=== PATIENT | female | born 1980 ===

== ENCOUNTER 2025-07-09 11:45 | Inpatient (IN) | payer OTHER ==
[~2025-07-09] VITALS: Ht 165.1 cm; Wt 72.6 kg
[2025-07-09] MEDS ORDERED: GRALISE600 MG PO (13:12)
[2025-07-09 13:37] VITALS: BP 137/84
[2025-07-09 13:38] VITALS: BP 119/76
[2025-07-09 14:30] LABS: COVID-19 AG NEGATIVE (NEGATIVE)
[2025-07-09 15:12] LABS: RH POSITIVE
[2025-07-15] MEDS ORDERED: POVIDONE-IODINE 118 ML BOTT TOP ONE ×2 (15:05→15:19)
[2025-07-15] MEDS ORDERED: VISTASEAL DUAL APPICATOR 1 EACH APPL TOP ONE (15:19)
[2025-07-15] MEDS ORDERED: CEFAZOLIN SODIUM 1,000 MG VIAL IV ONE (16:45)
[2025-07-15] MEDS ORDERED: METRONIDAZOLE/SODIUM CHLORIDE 500 MG/100 ML PIGGYBACK IV ONE (16:45)
[2025-07-15] MEDS ORDERED: SUGAMMADEX SODIUM 200 MG/2 ML VIAL IV ONE (16:46)
[2025-07-15] MEDS ORDERED: OxyCODONE HCL 5 MG TABLET (ROXICODONE) PO PRN (17:30)
[2025-07-15] MEDS ORDERED: MORPHINE SULFATE 4 MG/ML CARTRIDGE IV PRN (17:30)
[2025-07-15] MEDS ORDERED: RINGERS SOLUTION,LACTATED 1,000 ML IV SCH (17:30)
[2025-07-15] MEDS ORDERED: ONDANSETRON HCL 2 MG/ML VIAL IV PRN (17:30)
[2025-07-15] MEDS ORDERED: ACETAMINOPHEN 500 MG GEL..CAP PO SCH (18:00)
[2025-07-15] MEDS ORDERED: KETOROLAC TROMETHAMINE 30 MG VIAL IM SCH (18:00)
[2025-07-15] MEDS ORDERED: MORPHINE SULFATE 4 MG/ML VIAL IV ONE ×2 (18:10→18:40)
[2025-07-15] MEDS ORDERED: KETOROLAC TROMETHAMINE 30 MG VIAL ONE (19:58)
[2025-07-15] MEDS ORDERED: FAMOTIDINE/PF 20 MG/2 ML VIAL IV PUSH SCH (21:00)
[2025-07-15] MEDS ORDERED: DOCUSATE SODIUM 100MG CAP PO SCH (21:00)
[2025-07-15 21:21] LABS: BASO % 0.3 % (0.1-1.2); EOS # 0.01 (0.04-0.54); EOS % 0.1 % (0.7-7.0); LYMPH # 1.40 (1.18-3.74); LYMPH % 11.5 % (19.3-53.1); MEAN PLATELET VOLUME 10.40 fl (9.4-12.4); MONO # 0.55 (0.24-0.82); MONO % 4.5 % (4.7-12.5); NEUT # 10.14 (1.56-6.13); NEUT % 83.4 % (34.0-71.1); RED CELL DISTRIBUTION WIDTH 14.1 % (11.6-14.4)
[2025-07-15] MEDS ORDERED: FAMOTIDINE/PF 20 MG/2 ML VIAL ONE (21:25)
[2025-07-15 22:02] LABS: BUN CREA RATIO 15.0 (7.0-25.0); CREATININE SERUM 0.6 mg/dL (0.55-1.02); GFR 107.62; GLUCOSE FASTING 80.0 mg/dL (65-100); OSMOLALITY SERUM 279.0 MOSM/KG (275-295)
[2025-07-15 22:14] VITALS: BP 119/76
[2025-07-16 00:43] VITALS: BP 92/62
[2025-07-16 00:45] VITALS: BP 112/69; O2SAT 100
[2025-07-16] MEDS ORDERED: GABAPENTIN 300 MG CAPSULE PO SCH (01:00)
[2025-07-16] MEDS ORDERED: CEFAZOLIN SODIUM 1,000 MG VIAL IV SCH (01:00)
[2025-07-16 04:30] VITALS: BP 101/64
[2025-07-16 07:31] LABS: BASO % 0.5 % (0.1-1.2); EOS # 0.05 (0.04-0.54); EOS % 0.5 % (0.7-7.0); LYMPH # 1.44 (1.18-3.74); LYMPH % 14.2 % (19.3-53.1); MEAN PLATELET VOLUME 11.80 fl (9.4-12.4); MONO # 0.55 (0.24-0.82); MONO % 5.4 % (4.7-12.5); NEUT # 7.99 (1.56-6.13); NEUT % 79.1 % (34.0-71.1); RED CELL DISTRIBUTION WIDTH 14.6 % (11.6-14.4)
[2025-07-16 07:41] LABS: BUN CREA RATIO 14.0 (7.0-25.0); CREATININE SERUM 0.63 mg/dL (0.55-1.02); GFR 101.73; GLUCOSE FASTING 68.0 mg/dL (65-100); OSMOLALITY SERUM 275.0 MOSM/KG (275-295)
[2025-07-16 08:00] VITALS: BP 102/68
[2025-07-16] MEDS ORDERED: ENOXAPARIN SODIUM 40 MG/0.4 ML SYRINGE SUBCUTANEO SCH (09:00)
== END 2025-07-16 12:46 | disposition home or self-care (01) | DRG 743 ==
LOC: O/R 07-15 09:00 → SURH 07-15 10:15 → OB/GYN 07-15 17:07
PROVIDERS: ADMIT Obstetrics & Gynecology Gynecologic Oncology; ATTEND Obstetrics & Gynecology Gynecologic Oncology
PROC: 0UT74ZZ Resection of Bilateral Fallopian Tubes, Percutaneous Endoscopic Approach (ICD-10-PCS; 2025-07-15)
PROC: 0USG4ZZ Reposition Vagina, Percutaneous Endoscopic Approach (ICD-10-PCS; 2025-07-15)
PROC: 0TNB4ZZ Release Bladder, Percutaneous Endoscopic Approach (ICD-10-PCS; 2025-07-15)
PROC: 8E0W4CZ Robotic Assisted Procedure of Trunk Region, Percutaneous Endoscopic Approach (ICD-10-PCS; 2025-07-15)
PROC: 0UT94ZZ Resection of Uterus, Percutaneous Endoscopic Approach (ICD-10-PCS; principal; 2025-07-15 10:15)
DX: D25.1 Intramural leiomyoma of uterus (principal); D27.1 Benign neoplasm of left ovary; D27.0 Benign neoplasm of right ovary; N72 Inflammatory disease of cervix uteri
CPT/HCPCS: 58571; 57425; S2900